=== PATIENT | male | born 2000 | race American Indian/Alaskan Native ===

== ENCOUNTER 2019-07-11 11:22 | Emergency (ER) | payer SELFPAY ==
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
--- NOTE | 2019-07-11 12:05 | Emergency Department Report ---
<KRISTYN AMARO - Last Filed: 07/11/19 14:35> ED Psych HPI - General Chief Complaint: Psych Stated Complaint: PYSCH EVAL Time Seen by Provider: 07/11/19 12:01 - Related Data Allergies Allergy/AdvReac Type Severity Reaction Status Date / Time No Known Allergies Allergy Unverified 07/11/19 11:23 ED Medical Decision Making - Lab Data Result diagrams: 07/11/19 12:21 07/11/19 12:21 - Medical Decision Making I discussed case with my colleague. I am concerned for undiagnosed mental illness with previous suicide attempt, recent incarceration, homelessness, current SI/HI and hallucinations differential diagnosis includes drug-induced psychosis, schizophrenia, depressive disorder with psychosis he is medically clear for psychiatric care. I reviewed the labs obtained. ED Disposition Clinical Impression: Suicidal thoughts, Homicidal thoughts, Hallucinations Disposition: DC/TX-65 PSY HOSP/PSY UNIT Condition: Stable <SHEILA MIRAMONTES - Last Filed: 07/11/19 15:19> ED Psych HPI - General Source: patient, family Mode of arrival: Ambulatory - History of Present Illness Initial Comments: 19-year-old -[place] male patient without significant past medical history presents with complaints of SI/HI for more than 6 months. She now admits to auditory and visual also. He denies any specific plan of suicide or homicide and denies any particular person he wishes to harm. Patient admits to suicidal attempt 2 years ago. He denies any previous mental health history or being on medications. ED Review of Systems ROS: Stated complaint: PYSCH EVAL Other details as noted in HPI Constitutional: denies: chills, fever Eyes: denies: eye pain, vision change ENT: denies: ear pain Respiratory: denies: cough, shortness of breath Cardiovascular: denies: chest pain Gastrointestinal: denies: abdominal pain, diarrhea Genitourinary: denies: dysuria, frequency, hematuria Musculoskeletal: denies: back pain Neurological: denies: headache, weakness, numbness, paresthesias, confusion, abnormal gait Psychiatric: depression, auditory hallucinations, visual hallucinations, homicidal thoughts, suicidal thoughts ED Past Medical Hx - Past Medical History Previous Medical History?: No - Surgical History Past Surgical History?: No - Social History Smoking Status: Current Every Day Smoker Substance Use Type: Alcohol ED Physical Exam - General Limitations: No Limitations - Head Head exam: Present: atraumatic, normocephalic - Eye Eye exam: Present: normal appearance, PERRL - Neck Neck exam: Present: full ROM. Absent: tenderness - Respiratory Respiratory exam: Present: normal lung sounds bilaterally. Absent: respiratory distress - Cardiovascular Cardiovascular Exam: Present: regular rate, normal rhythm. Absent: systolic murmur, diastolic murmur, rubs, gallop - GI/Abdominal GI/Abdominal exam: Present: soft. Absent: distended, tenderness - Rectal Rectal exam: Present: deferred - Extremities Exam Extremities exam: Absent: pedal edema - Back Exam Back exam: Present: full ROM - Neurological Exam Neurological exam: Present: alert, oriented X3, normal gait - Psychiatric Psychiatric exam: Present: homicidal ideation, suicidal ideation. Absent: normal affect (inappropriate laughing noted) - Skin Skin exam: Present: warm, dry, intact, normal color. Absent: rash, cyanosis, diaphoretic ED Course Vital Signs 07/11/19 07/11/19 07/11/19 11:31 11:33 13:00 Temperature 98.2 F 98.4 F Pulse Rate 91 H 72 Respiratory 20 18 Rate Blood Pressure 159/85 Blood Pressure 142/75 [Left] O2 Sat by Pulse 100 100 Oximetry ED Medical Decision Making - Lab Data Result diagrams: 07/11/19 12:21 07/11/19 12:21 Lab Results 07/11/19 07/11/19 07/11/19 Range/Units 12:09 12:09 12:21 WBC (4.5-11.0) K/mm3 RBC (3.65-5.03) M/mm3 Hgb (11.8-15.2) gm/dl Hct (35.5-45.6) % MCV (84-94) fl MCH (28-32) pg MCHC (32-34) % RDW (13.2-15.2) % Plt Count (140-440) K/mm3 Sodium 140 (137-145) mmol/L Potassium 3.4 L (3.6-5.0) mmol/L Chloride 105.3 (98-107) mmol/L Carbon Dioxide 21 L (22-30) mmol/L Anion Gap 17 mmol/L BUN 14 (9-20) mg/dL Creatinine 1.0 (0.8-1.5) mg/dL Estimated GFR > 60 ml/min BUN/Creatinine Ratio 14 % Glucose 102 H (75-100) mg/dL Calcium 9.3 (8.4-10.2) mg/dL Total Bilirubin 0.30 (0.1-1.2) mg/dL AST 34 (5-40) units/L ALT 29 (7-56) units/L Alkaline Phosphatase 90 (35-129) units/L Total Protein 7.2 (6.3-8.2) g/dL Albumin 4.1 (3.9-5) g/dL Albumin/Globulin Ratio 1.3 % Urine Color Colorless (Yellow) Urine Turbidity Clear (Clear) Urine pH 7.0 (5.0-7.0) Ur Specific [place] 1.002 L (1.003-1.030) Urine Protein <15 mg/dl (Negative) mg/dL Urine Glucose (UA) Neg (Negative) mg/dL Urine Ketones Neg (Negative) mg/dL Urine Blood Neg (Negative) Urine Nitrite Neg (Negative) Urine Bilirubin Neg (Negative) Urine Urobilinogen < 2.0 (<2.0) mg/dL Ur Leukocyte Esterase Tr (Negative) Urine WBC (Auto) 2.0 (0.0-6.0) /HPF Urine RBC (Auto) 1.0 (0.0-6.0) /HPF Urine Bacteria (Auto) 1+ (Negative) /HPF Salicylates (2.8-20.0) mg/dL Urine Opiates Screen Presumptive negative Urine Methadone Screen Presumptive negative Acetaminophen (10.0-30.0) ug/mL Ur Barbiturates Screen Presumptive negative Ur Phencyclidine Scrn Presumptive negative Ur Amphetamines Screen Presumptive negative U Benzodiazepines Scrn Presumptive negative Urine Cocaine Screen Presumptive negative U Marijuana (THC) Screen Presumptive negative Drugs of Abuse Note Disclamer Plasma/Serum Alcohol (0-0.07) % 07/11/19 07/11/19 07/11/19 Range/Units 12:21 12:21 12:21 WBC (4.5-11.0) K/mm3 RBC (3.65-5.03) M/mm3 Hgb (11.8-15.2) gm/dl Hct (35.5-45.6) % MCV (84-94) fl MCH (28-32) pg MCHC (32-34) % RDW (13.2-15.2) % Plt Count (140-440) K/mm3 Sodium (137-145) mmol/L Potassium (3.6-5.0) mmol/L Chloride (98-107) mmol/L Carbon Dioxide (22-30) mmol/L Anion Gap mmol/L BUN (9-20) mg/dL Creatinine (0.8-1.5) mg/dL Estimated GFR ml/min BUN/Creatinine Ratio % Glucose (75-100) mg/dL Calcium (8.4-10.2) mg/dL Total Bilirubin (0.1-1.2) mg/dL AST (5-40) units/L ALT (7-56) units/L Alkaline Phosphatase (35-129) units/L Total Protein (6.3-8.2) g/dL Albumin (3.9-5) g/dL Albumin/Globulin Ratio % Urine Color (Yellow) Urine Turbidity (Clear) Urine pH (5.0-7.0) Ur Specific [place] (1.003-1.030) Urine Protein (Negative) mg/dL Urine Glucose (UA) (Negative) mg/dL Urine Ketones (Negative) mg/dL Urine Blood (Negative) Urine Nitrite (Negative) Urine Bilirubin (Negative) Urine Urobilinogen (<2.0) mg/dL Ur Leukocyte Esterase (Negative) Urine WBC (Auto) (0.0-6.0) /HPF Urine RBC (Auto) (0.0-6.0) /HPF Urine Bacteria (Auto) (Negative) /HPF Salicylates < 0.3 L (2.8-20.0) mg/dL Urine Opiates Screen Urine Methadone Screen Acetaminophen < 5.0 L (10.0-30.0) ug/mL Ur Barbiturates Screen Ur Phencyclidine Scrn Ur Amphetamines Screen U Benzodiazepines Scrn Urine Cocaine Screen U Marijuana (THC) Screen Drugs of Abuse Note Plasma/Serum Alcohol < 0.01 (0-0.07) % 07/11/19 Range/Units 12:21 WBC 7.6 (4.5-11.0) K/mm3 RBC 4.42 (3.65-5.03) M/mm3 Hgb 13.5 (11.8-15.2) gm/dl Hct 40.0 (35.5-45.6) % MCV 91 (84-94) fl MCH 31 (28-32) pg MCHC 34 (32-34) % RDW 14.3 (13.2-15.2) % Plt Count 276 (140-440) K/mm3 Sodium (137-145) mmol/L Potassium (3.6-5.0) mmol/L Chloride (98-107) mmol/L Carbon Dioxide (22-30) mmol/L Anion Gap mmol/L BUN (9-20) mg/dL Creatinine (0.8-1.5) mg/dL Estimated GFR ml/min BUN/Creatinine Ratio % Glucose (75-100) mg/dL Calcium (8.4-10.2) mg/dL Total Bilirubin (0.1-1.2) mg/dL AST (5-40) units/L ALT (7-56) units/L Alkaline Phosphatase (35-129) units/L Total Protein (6.3-8.2) g/dL Albumin (3.9-5) g/dL Albumin/Globulin Ratio % Urine Color (Yellow) Urine Turbidity (Clear) Urine pH (5.0-7.0) Ur Specific [place] (1.003-1.030) Urine Protein (Negative) mg/dL Urine Glucose (UA) (Negative) mg/dL Urine Ketones (Negative) mg/dL Urine Blood (Negative) Urine Nitrite (Negative) Urine Bilirubin (Negative) Urine Urobilinogen (<2.0) mg/dL Ur Leukocyte Esterase (Negative) Urine WBC (Auto) (0.0-6.0) /HPF Urine RBC (Auto) (0.0-6.0) /HPF Urine Bacteria (Auto) (Negative) /HPF Salicylates (2.8-20.0) mg/dL Urine Opiates Screen Urine Methadone Screen Acetaminophen (10.0-30.0) ug/mL Ur Barbiturates Screen Ur Phencyclidine Scrn Ur Amphetamines Screen U Benzodiazepines Scrn Urine Cocaine Screen U Marijuana (THC) Screen Drugs of Abuse Note Plasma/Serum Alcohol (0-0.07) % - Medical Decision Making 19-year-old male patient here today for S/H. History of attempted suicide 2 years ago per patient. Patient otherwise denies any previous mental health issues. Nurse states she spoke to the patient's mother who informed her patient recently released from incarceration 2 days ago and now sleeping in his car. Patient placed on 1013. Labs are without acute findings. Vitals are WNL. Patient is medically clear for psychiatric care. Critical care attestation.: If time is entered above; I have spent that time in minutes in the direct care of this critically ill patient, excluding procedure time. ED Disposition Is pt being admited?: No
[2019-07-11 12:37] LABS: Hemoglobin 13.5 gm/dl (11.8-15.2); Mean Corpuscular HGB Conc 34 % (32-34); Mean Corpuscular Volume 91 fl (84-94); Platelet Count 276 K/mm3 (140-440); Red Blood Count 4.42 M/mm3 (3.65-5.03); Red Cell Distribution Width 14.3 % (13.2-15.2)
[2019-07-11 12:49] LABS: Bacteria,Urine 1+ /HPF (Negative); Bilirubin,Urine NEG (Negative); Blood,Urine NEG (Negative); Color,Urine Colorless (Yellow); Protein,Urine <15 mg/dL mg/dL (Negative); Urobilinogen,Urine < 2.0 mg/dL (<2.0)
[2019-07-11 12:51] LABS: Alanine Aminotransferase 29 units/L (7-56); Albumin 4.1 g/dL (3.9-5); BUN/Creatinine Ratio 14; Blood Urea Nitrogen 14 mg/dL (9-20); Calcium 9.3 mg/dL (8.4-10.2); Hemolysis Index 5
[2019-07-11 12:53] LABS: Amphetamine Screen,Urine PRESUMPTIVE NEGATIVE; Benzodiazepines Screen,Urine PRESUMPTIVE NEGATIVE; Cannabinoid Screen,Urine PRESUMPTIVE NEGATIVE; Cocaine Screen,Urine PRESUMPTIVE NEGATIVE; Methadone Screen,Urine PRESUMPTIVE NEGATIVE; Opiate Screen,Urine PRESUMPTIVE NEGATIVE
[2019-07-12] MEDS ORDERED: diphenhydrAMINE 50 MG/ML VIAL IM ONE (03:52)
[2019-07-12] MEDS ORDERED: ZIPRASIDONE MESYLATE 20 MG VIAL IM ONE (03:52)
--- NOTE | 2019-07-12 13:44 | Consultation ---
History of Present Illness - Reason for Consult Consult date: 07/12/19 Reason for consult: Mental Health Evaluation Requesting physician: KRISTYN AMARO - Chief Complaint Chief complaint: " I see what you see" - History of Present Psychiatric Illness This is a 19 year old male that presented to the ER with suicidal thoughts, auditory and visual hallucinations. Assessment is difficult. Patient is laughing inappropriately, he is responding to internal stimuli, he appears to be somewhat restless, not agitated. He endorses hallucinations, unable to answer questions regarding suicidality and drug or substance use. Medications and Allergies Allergies Allergy/AdvReac Type Severity Reaction Status Date / Time No Known Allergies Allergy Unverified 07/11/19 11:23 Home Medications Medication Instructions Recorded Confirmed Last Taken Type No Known Home Medications [No 07/11/19 07/11/19 Unknown History Reported Home Medications] Active Meds: Active Medications Risperidone (Risperdal Oral Liqd) 1 mg PO BID ROSALIE Past psychiatric history - Past Medical History Past Surgical History: No surgical history Mental Status Exam - Vital signs Last Vital Signs Temp 97.9 F 07/12/19 08:56 Pulse 60 07/12/19 08:56 Resp 13 07/12/19 08:56 BP 113/58 07/12/19 08:56 Pulse Ox 100 07/12/19 08:56 - Exam Orientation: person Affect: anxious Mood: euphoric Thought Process: Disorganized Perceptions: visual, auditory, hallucinations Concentration: unable to pay attention Motor activity: restless Results Result Diagrams: 07/11/19 12:21 07/11/19 12:21 All other labs normal. Assessment and Plan Assessment and plan: Impression: 19 y/o male with acute psychosis, unspecified at this time Ddx: Schizophrenia, bipolar disorder, MDD with psychotic features, substance induced psychosis Assessment and Plan Continue 1013 at this time. Patient is hallucinating more and more restless. He is psychotic at this time and requires further evaluation and treatment at this time. We will prescribe 1 mg risperdal BID We will refer patient for inpatient status at this time. Staffed with Dr. Kati Schaffer MD
[2019-07-12 20:05] VITALS: BP 141/84
[2019-07-12] MEDS ORDERED: risperiDONE 1 MG/1 ML ORAL LIQD PO SCH (22:00)
== END 2019-07-12 21:00 ==
LOC: ED 11:22 → EEVIPCON 11:22 → ED 07-12 21:00
DX: F23 Brief psychotic disorder (principal); F17.200 Nicotine dependence, unspecified, uncomplicated; Z79.899 Other long term (current) drug therapy
CPT/HCPCS: 36415; 80053; 80307; 81001; 85027; 96372; 99285; J1200; J3486; 80320; G0480

== ENCOUNTER 2020-02-17 00:26 | Emergency (ER) | payer SELFPAY ==
[2020-02-17] MEDS ORDERED: IBUPROFEN 600 MG TAB PO ONE (03:34)
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
[2020-02-17 06:35] VITALS: BP 150/78
== END 2020-02-17 06:36 | disposition home or self-care (01) ==
LOC: ED 00:26
DX: S02.85XA Fracture of orbit, unspecified, initial encounter for closed fracture (principal); I10 Essential (primary) hypertension; F25.0 Schizoaffective disorder, bipolar type; F12.90 Cannabis use, unspecified, uncomplicated; Z79.899 Other long term (current) drug therapy; Y04.2XXA Assault by strike against or bumped into by another person, initial encounter; Y93.89 Activity, other specified; Y92.89 Other specified places as the place of occurrence of the external cause; Y99.8 Other external cause status
CPT/HCPCS: 70150; 70486

== ENCOUNTER 2020-09-22 07:44 | Emergency (ER) | payer SELFPAY ==
[2020-09-22 07:50] VITALS: BP 155/66
--- NOTE | 2020-09-22 07:57 | Emergency Department Report ---
Chief Complaint: Extremity Injury, Lower Stated Complaint: ANKLE INJURY Time Seen by Provider: 09/22/20 07:52 - HPI History of Present Illness: 20-year-old -[place] male presents to the emergency room for left ankle injury. Patient states that he had sprained his ankle while at work yesterday. Patient presents to the emergency room today. Patient is taking nothing for his pain. Patient states he has been able to walk on it without any problems. Patient reports his pain is located in the medial aspect of his left ankle. - Exam Vital Signs: Vital Signs 09/22/20 07:48 Temperature 98.5 F Pulse Rate 88 Respiratory 20 Rate Blood Pressure 155/66 [Right] O2 Sat by Pulse 99 Oximetry Physical Exam: Alert and oriented x3 no acute distress nontoxic in appearance Left ankle full range of motion no obvious deformity minimal swelling on the opposite side of the pain. Nonerythematous Patient is ambulating without difficulties. MSE screening note: Focused history and physical exam performed. Due to findings the following was ordered: 20-year-old -[place] male presents to the emergency room for left ankle injury. Patient states that he had sprained his ankle while at work yesterday. Patient presents to the emergency room today. Patient is taking nothing for his pain. Patient states he has been able to walk on it without any problems. Patient reports his pain is located in the medial aspect of his left ankle. Discussed with patient that he does have a ankle sprain recommend Jeff bandage Tylenol ibuprofen or Aleve for pain management. Referral to Dr. Reynaga if symptoms persist. Work excuse attached to paperwork. ED Disposition for MSE Clinical Impression: Ankle sprain Qualifiers: Encounter type: initial encounter Involved ligament of ankle: unspecified ligament Laterality: left Qualified Code(s): S93.402A - Sprain of unspecified ligament of left ankle, initial encounter Disposition: MED SCREENING EXAM-LEFT Is pt being admited?: No Does the pt Need Aspirin: No Condition: Stable Instructions: Ankle Sprain, [id number] Additional Instructions: Recommend ibuprofen or Tylenol or even Aleve for pain management. You can place an ice bandage on your ankle. Referrals: KWAN REYNAGA MD [Staff Physician] - 3-5 Days Forms: Work/School Release Form(ED)
== END 2020-09-22 08:07 | disposition left against medical advice (07) ==
LOC: ED 07:44
DX: M25.572 Pain in left ankle and joints of left foot (principal); Z53.21 Procedure and treatment not carried out due to patient leaving prior to being seen by health care provider

== ENCOUNTER 2021-05-19 20:16 | Emergency (ER) | payer SELFPAY ==
--- NOTE | 2021-05-19 21:24 | Emergency Department Report ---
ED Psych HPI - General Chief Complaint: Psych Stated Complaint: IRREGULAR HEARTBEAT Time Seen by Provider: 05/19/21 21:06 Source: patient Mode of arrival: Ambulatory - History of Present Illness Initial Comments: 20-year-old male, history of bipolar disorder, schizophrenia, presents to ED for mental health evaluation. According to triage note, patient's mother called EMS because patient was standing on the corner wearing only his underwear. Mother reports patient's heart rate was elevated at home, however it is normal here in the ED. Mother reports patient is noncompliant with his medications. Patient refusing to answer any questions. When I asked the patient if he was going to speak to me, patient shook his head "no". Complaint: other -: This evening Improves With: medication Worsens With: none Context: not taking psychiatric Treatments Prior to Arrival: none - Related Data Previous Rx's Medication Instructions Recorded Last Taken Type Ibuprofen [Motrin 800 MG tab] 800 mg PO Q8HR PRN #30 tablet 02/17/20 Unknown Rx Allergies Allergy/AdvReac Type Severity Reaction Status Date / Time No Known Allergies Allergy Verified 09/22/20 07:45 ED Review of Systems ROS: Stated complaint: IRREGULAR HEARTBEAT Other details as noted in HPI Comment: Unobtainable due to pts medical conditions ED Past Medical Hx - Past Medical History Previous Medical History?: Yes Hx Hypertension: Yes Hx Psychiatric Treatment: Yes (schizophrenia bipolar) Additional medical history: bronchitis - Surgical History Past Surgical History?: No - Social History Smoking Status: Never Smoker Substance Use Type: Alcohol - Medications Home Medications: Home Medications Medication Instructions Recorded Confirmed Last Taken Type Ibuprofen [Motrin 800 MG tab] 800 mg PO Q8HR PRN #30 tablet 02/17/20 Unknown Rx ED Physical Exam - General Limitations: No Limitations General appearance: alert, in no apparent distress - Head Head exam: Present: atraumatic, normocephalic - Eye Eye exam: Present: normal appearance, EOMI - ENT ENT exam: Present: mucous membranes moist - Neck Neck exam: Present: normal inspection - Respiratory Respiratory exam: Present: normal lung sounds bilaterally. Absent: respiratory distress - Cardiovascular Cardiovascular Exam: Present: regular rate, normal rhythm - GI/Abdominal GI/Abdominal exam: Absent: distended - Extremities Exam Extremities exam: Present: normal inspection - Neurological Exam Neurological exam: Present: alert - Psychiatric Psychiatric exam: Present: flat affect - Skin Skin exam: Present: warm, dry, intact, normal color ED Course Vital Signs 05/19/21 05/19/21 05/19/21 20:26 21:28 21:57 Temperature 98.8 F 98.5 F Pulse Rate 74 79 Respiratory 18 18 18 Rate Blood Pressure 150/59 Blood Pressure 136/61 [Left] O2 Sat by Pulse 94 95 98 Oximetry ED Medical Decision Making - Lab Data Result diagrams: 05/19/21 21:06 05/19/21 21:06 - Medical Decision Making 20-year-old male, history of schizophrenia, bipolar, presents to ED with bizarre behavior. Patient is reportedly not taking his psychiatric medications. Patient refusing to answer questions with me. Vital signs are stable. Labs are unremarkable. Still awaiting urine for UA and tox screen, however patient is medically clear for mental health evaluation. Will dispo per psych. Critical care attestation.: If time is entered above; I have spent that time in minutes in the direct care of this critically ill patient, excluding procedure time. ED Disposition Clinical Impression: Schizophrenia Condition: Stable
[2021-05-19 21:31] LABS: Basophils # (Auto) 0.2 K/mm3 (0.0-0.1); Basophils % (Auto) 2.2 % (0.0-1.8); Eosinophils # (Auto) 0.2 K/mm3 (0.0-0.4); Eosinophils % (Auto) 2.3 % (0.0-4.3); Hemoglobin 13.4 gm/dl (11.8-15.2); Lymphocytes # (Auto) 1.7 K/mm3 (1.2-5.4); Lymphocytes % (Auto) 24.9 % (13.4-35.0); Mean Corpuscular HGB Conc 34 % (32-34); Mean Corpuscular Volume 91 fl (84-94); Monocytes # (Auto) 0.7 K/mm3 (0.0-0.8); Monocytes % (Auto) 10.6 % (0.0-7.3); Platelet Count 293 K/mm3 (140-440); Red Blood Count 4.42 M/mm3 (3.65-5.03); Red Cell Distribution Width 14.5 % (13.2-15.2)
[2021-05-19 21:46] LABS: BUN/Creatinine Ratio 15; Blood Urea Nitrogen 15 mg/dL (9-20); Calcium 9.5 mg/dL (8.4-10.2); Hemolysis Index 22
--- NOTE | 2021-05-20 11:34 | Emergency Department Report ---
Blank Doc - Documentation Documentation: 20-year-old male with schizophrenia and bipolar behavior. Vital signs and labs reviewed without acute abnormalities Still awaiting urine collection No events overnight as per nursing notes Patient is not on a 1013 awaiting official mental health consult (they are awaiting patient medical clearance based on urine collection prior to placement)
--- NOTE | 2021-05-20 12:58 | Consultation ---
History of Present Illness - Reason for Consult Consult date: 05/20/21 Reason for consult: mental health evaluation - History of Present Psychiatric Illness Per Ed Note:20-year-old male, history of bipolar disorder, schizophrenia, presents to ED for mental health evaluation. According to triage note, patient's mother called EMS because patient was standing on the corner wearing only his underwear. Mother reports patient's heart rate was elevated at home, however it is normal here in the ED. Mother reports patient is noncompliant with his medications. Patient refusing to answer any questions. When I asked the patient if he was going to speak to me, patient shook his head "no". Faheem Whitman is a 20 year old male with diagnosis of Schizophrenia, Bipolar who presents to the ED for mental health evaluation. In my interview with the patient, he was guarded. The patient is unable to states why he came to the ED; his states his mother brought him" I don't even know why." He denies any current suicidal/homicidal ideation and denies hallucinations. Psych History Diagnoses: Schizophrenia, Bipolar Suicide attempts or Self-harm behavior:Yes Prior psychiatric hospitalizations: Yes Substance Abuse history:Denies Previous psychiatric medications tried:currently on [place], Zyprexa Outpatient treatment: Yes PAST MEDICAL HISTORY: none reported Family Psychiatric History: None reported or documented SOCIAL HISTORY Marital Status: Single Living Arrangements: Lives mother and grand mother Employment Status:unemployed Access to guns/weapons: Denies Education:12th Grade History of Abuse: Denies Legal History: none reported REVIEW OF SYSTEMS Constitutional: Negative for weight loss ENT: Negative for stridor Respiratory: Negative for cough or hemoptysis All other systems reviewed and are negative MENTAL STATUS EXAMINATION General Appearance and Behavior: Age appropriate, good hygiene, wearing appropriate clothes, sleeping, cooperative Cooperation: Participating but drowsy Psychomotor Behavior: unremarkable and within normal limits Mood: "OK" Affect and affective range: congruent with mood, labile Thought Process:Goal directed Thought Content: Not suicidal Speech: Normal volume, Regular rate and rhythm, Suicidal Ideation: Denies Homicidal Ideation:Denies Hallucinations: Yes, auditory Delusions: None elicited Impulse Control: Questionable Insight and Judgment: Limited insight and poor judgment, Memory: Normal, Attention: Normal Orientation: Alert, oriented Assessment and Plan (1)Bipolar, unspecified- F31.9 Treatment plan Continue previously prescribed medications The patient to comply with previously prescribed medications Risks, benefits and alternatives of medications discussed with the patient, questions answered and consent obtained from patient. PSYCHOTHERAPY: Supportive psychotherapy provided MEDICAL: Per primary team DELIRIUM PRECAUTIONS: Please re-orient patient frequently, keep lights on during the day, and minimize benzodiazepines and opiates as these medications could worsen patient's confusion. WASTE SALVAGER: Defer to primary Disposition:Do not Recommend acute psychiatric inpatient treatment. Car Sales Consultant will provide patient with outpatient resources. Will sign off. Thank you for the consult. Please contact with any questions and/or concerns. Case staffed with Dr. Dickey Medications and Allergies Medications and Allergies Allergies Allergy/AdvReac Type Severity Reaction Status Date / Time No Known Allergies Allergy Verified 09/22/20 07:45 Home Medications Medication Instructions Recorded Confirmed Last Taken Type Ibuprofen [Motrin 800 MG tab] 800 mg PO Q8HR PRN #30 tablet 02/17/20 Unknown Rx Mental Status Exam - Vital signs Last Vital Signs Temp 98.5 F 05/20/21 10:26 Pulse 82 05/20/21 10:26 Resp 16 05/20/21 10:26 BP 111/67 05/20/21 10:26 Pulse Ox 100 05/20/21 10:26 Results Result Diagrams: 05/19/21 21:06 05/19/21 21:06 Abnormal lab results 05/19/21 05/19/21 05/19/21 Range/Units 21:06 21:06 21:06 [place] % (Auto) (0.0-7.3) % Baso % (Auto) (0.0-1.8) % Baso # (Auto) (0.0-0.1) K/mm3 Glucose 108 H (75-100) mg/dL Salicylates < 0.3 L (2.8-20.0) mg/dL Acetaminophen 5.0 L (10.0-30.0) ug/mL 05/19/21 Range/Units 21:06 [place] % (Auto) 10.6 H (0.0-7.3) % Baso % (Auto) 2.2 H (0.0-1.8) % Baso # (Auto) 0.2 H (0.0-0.1) K/mm3 Glucose (75-100) mg/dL Salicylates (2.8-20.0) mg/dL Acetaminophen (10.0-30.0) ug/mL All other labs normal.
[2021-05-20 16:47] LABS: Bilirubin,Urine NEG (Negative); Blood,Urine NEG (Negative); Color,Urine Yellow (Yellow); Mucus,Urine FEW /HPF; Protein,Urine <15 mg/dL mg/dL (Negative); RBC,Urine < 1.0 /HPF (0.0-6.0); Urobilinogen,Urine < 2.0 mg/dL (<2.0)
[2021-05-20 16:55] LABS: Amphetamine Screen,Urine Negative; Benzodiazepines Screen,Urine Negative; Cocaine Screen,Urine Negative; Methadone Screen,Urine Negative; Opiate Screen,Urine Negative
[2021-05-20 17:14] LABS: Cannabinoid Screen,Urine Positive
--- NOTE | 2021-05-20 18:54 | Emergency Department Report ---
Blank Doc - Documentation Documentation: pt cleared for d/c by psych
[2021-05-20 20:13] VITALS: BP 152/80
== END 2021-05-20 20:11 | disposition home or self-care (01) ==
LOC: ED 20:16
DX: F20.9 Schizophrenia, unspecified (principal); F31.9 Bipolar disorder, unspecified; I10 Essential (primary) hypertension; Z72.89 Other problems related to lifestyle; Z79.899 Other long term (current) drug therapy
CPT/HCPCS: 36415; 80048; 80307; 80320; 81001; 85025; 99284; G0480